=== PATIENT | male | born 1995 | race Caucasian/White ===

== ENCOUNTER 2017-05-24 18:48 | Emergency (ER) | payer BC ==
[2017-05-24 20:40] VITALS: BP 122/88
[2017-05-24] MEDS ORDERED: Acetaminophen TAB* 325 MG PO ONE (20:42)
--- NOTE | 2017-05-24 20:53 | UC ---
FLU HPI - HPI Summary HPI Summary: Pt c/o sudden onset of fver, chills and body aches X 2 days. - History of Current Complaint Chief Complaint: UCRespiratory Stated Complaint: FLU SYMPTOMS Time Seen by Provider: 05/24/17 20:41 Hx Obtained From: Patient Onset/Duration: Sudden Onset Severity Currently: Moderate Severity Initially: Moderate Pain Intensity: 7 Associated Signs & Symptoms: Positive: Fever, Myalgia Related Hx: Possible Flu/Infectious Exposure - Risk Factors Influenza Risk Factors: Negative - Allergy/Home Medications Allergies/Adverse Reactions: Allergies Allergy/AdvReac Type Severity Reaction Status Date / Time No Known Allergies Allergy Verified 05/24/17 20:35 PMH/Surg Hx/FS Hx/Imm Hx Previously Healthy: Yes - Surgical History Surgical History: None - Family History Known Family History: Positive: Cardiac Disease - Social History Occupation: Student Lives: Dormitory/Roommates Alcohol Use: Weekly Substance Use Type: None Smoking Status (MU): Never Smoked Tobacco Have You Smoked in the Last Year: No Review of Systems Constitutional: Fever, Chills, Fatigue Skin: Negative Eyes: Negative ENT: Sore Throat Respiratory: Negative Cardiovascular: Negative Gastrointestinal: Negative Genitourinary: Negative Motor: Negative Neurovascular: Negative Musculoskeletal: Myalgia Neurological: Negative Psychological: Negative Is Patient Immunocompromised?: No All Other Systems Reviewed And Are Negative: Yes Physical Exam Triage Information Reviewed: Yes Appearance: Ill-Appearing Vital Signs: Initial Vital Signs Temp 102.5 F 05/24/17 20:36 Pulse 104 05/24/17 20:36 Resp 16 05/24/17 20:36 BP 122/88 05/24/17 20:36 Pulse Ox 98 05/24/17 20:36 Vital Signs Reviewed: Yes Eye Exam: Normal ENT Exam: Other ENT: Positive: Pharyngeal erythema Dental Exam: Normal Neck exam: Normal Respiratory Exam: Normal Cardiovascular Exam: Normal Musculoskeletal Exam: Normal Neurological Exam: Normal Psychological Exam: Normal Skin Exam: Normal Diagnostics - Laboratory Diagnostic Studies Completed/Ordered: Rapid flu positive A Flu Course/Dx - Differential Dx/Diagnosis Differential Diagnosis/HQI/PQRI: Bronchitis, Influenza Provider Diagnoses: Influenza A Discharge - Discharge Plan Condition: Stable Disposition: HOME Prescriptions: Oseltamivir CAP* [Tamiflu CAP*] 75 mg PO Q12H #10 cap Patient Education Materials: Influenza (ED) Forms: *Physical Education Release Referrals: [facility] [Outside] - If Needed Non Staff,Doctor [Primary Care Provider] -
[2017-05-24] MEDS ORDERED: Oseltamivir CAP* 75 MG CAP PO ONE (21:04)
== END 2017-05-24 21:16 | disposition home or self-care (01) ==
LOC: UCCORT 18:48
DX: J09.X2 Influenza due to identified novel influenza A virus with other respiratory manifestations (principal)
CPT/HCPCS: 87502; 99202; A9270-GY; G0463

== ENCOUNTER 2018-05-17 11:48 | Emergency (ER) | payer BC ==
[2018-05-17 13:25] VITALS: BP 128/66
--- NOTE | 2018-05-17 13:50 | UC ---
Throat Pain/Nasal Addi HPI - HPI Summary HPI Summary: Mon. started w/ mouth and tongue sores, fever and feelign very tired, unwell. went to a school clinic and was told it was viral and rx'd magic mouth wash. per pt. he feels worse. - History of Current Complaint Chief Complaint: UCGeneralIllness Stated Complaint: FEVER,SORES IN MOUTH Time Seen by Provider: 05/17/18 13:24 Hx Obtained From: Patient Pain Intensity: 7 Pain Scale Used: 0-10 Numeric Cough: None Associated Signs & Symptoms: Positive: Fever. Negative: Hoarseness, Vomiting - Allergies/Home Medications Allergies/Adverse Reactions: Allergies Allergy/AdvReac Type Severity Reaction Status Date / Time No Known Allergies Allergy Verified 05/17/18 13:22 Home Medications: Home Medications Ibuprofen TAB* [Motrin TAB* 600 MG] 600 mg PO Q6H PRN 05/17/18 [History Confirmed 05/17/18] PMH/Surg Hx/FS Hx/Imm Hx Previously Healthy: Yes - Surgical History Surgical History: None - Family History Known Family History: Positive: Cardiac Disease - Social History Alcohol Use: Weekly Substance Use Type: None Smoking Status (MU): Never Smoked Tobacco Have You Smoked in the Last Year: No Review of Systems All Other Systems Reviewed And Are Negative: Yes Constitutional: Positive: Fever, Fatigue Skin: Negative: Rash Eyes: Negative: Drainage ENT: Positive: Sore Throat. Negative: Ear Ache Respiratory: Positive: Negative Cardiovascular: Positive: Negative Neurological: Negative: Headache Physical Exam Triage Information Reviewed: Yes Appearance: Well-Appearing Vital Signs: Initial Vital Signs Temp 99.5 F 05/17/18 13:20 Pulse 105 05/17/18 13:20 Resp 18 05/17/18 13:20 BP 128/66 05/17/18 13:20 Pulse Ox 98 05/17/18 13:20 Vital Signs Reviewed: Yes Eyes: Positive: Conjunctiva Clear ENT: Positive: Pharyngeal erythema, TMs normal, Other - tongue and oropharynx have apthous ulcers and canker sores. inflammation of gingiva. Neck: Positive: Supple, Nontender, Enlarged Nodes @ - ant. cervical chain bilat.. Negative: Nuchal Rigidity Respiratory Exam: Normal Cardiovascular Exam: Normal Skin: Negative: Rashes Throat Pain/Nasal Course/Dx - Course Assessment/Plan: Symptoms of oral mouth/tongue sores, fever, malaise for a few days. Feels he is getting worse. Afebrile today and up to date w/ vaccines aside from influenza. ON exam tongue and oropharynx did have canker sores. Will r/o mono, hiv. Rapid flu neg. Vitals good. Hand/Foot/Mouth dis suspected w/ no rash on body as of yet. He received magic mouth wash at an outiside clinic which he should cont. as well as nsaids for fever/other pains. IMportance of hydrationrelayed. - Differential Dx/Diagnosis Differential Diagnosis/HQI/PQRI: Influenza, James's Angina, Mononucleosis, Pharyngitis, Other Provider Diagnosis: Hand, foot and mouth disease Discharge - Sign-Out/Discharge Documenting (check all that apply): Patient Departure All imaging exams completed and their final reports reviewed: No Studies - Discharge Plan Condition: Good Disposition: HOME Patient Education Materials: Hand, Foot, and Mouth Disease (ED) Referrals: No Primary Care Phys,NOPCP [Primary Care Provider] - Additional Instructions: plEAES CALL US to get the results of your labs. For now we are calling this a viral infection that causes fever, malaise and oral sores. Use the magic mouthwash that was rx'd to you from the other clinic. And take ibuprofen every 6 hrs for the next 3-5 days. - Billing Disposition and Condition Condition: GOOD Disposition: Home
[2018-05-17 14:09] LABS: Influenza A Molecular NEGATIVE (Negative); Influenza B Molecular NEGATIVE (Negative)
[2018-05-18 14:37] LABS: Hematocrit 49 % (42-52); Hemoglobin 16.5 g/dl (14.0-18.0); Mean Corpuscular HGB Conc 34 g/dl (31-36); Mean Corpuscular Hemoglobin 29 pg (27-31); Mean Corpuscular Volume 85 fL (80-94); Mean Platelet Volume 10.5 fL (7.4-10.4); Platelet Count 173 10^3/ul (150-450); Red Blood Count 5.77 10^6/ul (4.00-5.40); Red Cell Distribution Width 13 % (10.5-15); White Blood Count 7.1 10^3/ul (3.5-10.8)
[2018-05-18 14:54] LABS: ABS Basophils 0 10^3/ul (0-0.2); ABS Eosinophils 0 10^3/ul (0-0.6); ABS Lymphocytes 1.2 10^3/ul (1.0-4.8); ABS Monocytes 0.8 10^3/ul (0-0.8); ABS Neutrophils 5.1 10^3/ul (1.5-7.7)
[2018-05-18 14:56] LABS: Lymphocytes % 17 %; Monocytes % 10 %; Neutrophil % 67 %; Variant Lymph % 6 % (0-6)
--- NOTE | 2018-05-19 06:52 | UC ---
- Progress Note Progress Note: please notify pt that his mono test was (+) No contact sports/skiing/snow boarding etc for 2-3 weeks Course/Dx - Diagnoses Provider Diagnoses: Hand, foot and mouth disease Discharge - Sign-Out/Discharge Documenting (check all that apply): Post-Discharge Follow Up All imaging exams completed and their final reports reviewed: No Studies - Discharge Plan Condition: Good Disposition: HOME Patient Education Materials: Hand, Foot, and Mouth Disease (ED) Referrals: No Primary Care Phys,NOPCP [Primary Care Provider] - Additional Instructions: plEAES CALL US to get the results of your labs. For now we are calling this a viral infection that causes fever, malaise and oral sores. Use the magic mouthwash that was rx'd to you from the other clinic. And take ibuprofen every 6 hrs for the next 3-5 days. - Billing Disposition and Condition Condition: GOOD Disposition: Home
== END 2018-05-17 14:21 | disposition home or self-care (01) ==
LOC: UCCORT 11:48
DX: B08.4 Enteroviral vesicular stomatitis with exanthem (principal)
CPT/HCPCS: 36415; 85025; 85060; 86308; 87389; 99212; G0463; G0475